=== PATIENT | male | born 1930 | race Asian ===

== ENCOUNTER → 2016-07-16 | Outpatient (CLI) | payer MEDICARE, OTHER ==
--- NOTE | 2016-07-16 13:18 | RADRPT ---
Echocardiogram Report Patient Name: JARED CHÁVEZ Gender: Male Date: 1930 Study Date: 16-Jul-2016 [place] Layer: Bharath [facility] Location: EKG Ref. Physician: DON HOFFMAN Quality: Adequate Procedures: Transthoracic echocardiogram with complete 2D, M-Mode, and doppler examination. Indications: Hypertension. 2D/M Mode Doppler Measurement Value Normal Ranges Measurement Value Normal Ranges LVIDd 2D 5.1 3.5 - 5.6 cm AV Peak Thierno 0.8 m/sec LVIDs 2D 3.8 2.1 - 4.1 cm AV Peak PG 2.8 mmHg LVPWd 2D 1.3 0.6 - 1.1 cm LVOT Peak Thierno 0.6 m/sec IVSd 2D 1.3 0.6 - 1.1 cm LVOT Peak PG 1.4 mmHg AoR Diam 2D 2.8 2.0 - 3.7 cm MV E Peak Thierno 0.5 m/sec EDV 2D 124.3 cm3 MV A Peak Thierno 0.9 m/sec ESV 2D 56.3 cm3 MV E/A 0.6 LA Dimen 2D 3.9 2.3 - 4.0 cm MV Decel Time 249 msec MV Decel [place] 2 MV E/A 0.6 Findings Left Ventricle: Overall, low normal left ventricular systolic function. Not all segments visualized. Normal left ventricular cavity size. Mild concentric left ventricular hypertrophy. Ejection fraction is visually estimated at 50 %. Tissue Doppler/Mitral Doppler indices are consistent with impaired relaxation (Stage I diastolic dysfunction). Right Ventricle: Normal right ventricular size. Normal right ventricular systolic function. Left Atrium: The left atrium is normal in size. Right Atrium: The right atrium is normal in size. Mitral Valve: Mitral valve leaflets appear mildly thickened. Trace mitral regurgitation. Aortic Valve: No hemodynamically significant aortic stenosis by doppler. Aortic cusps appear mildly calcified. Trace aortic valve regurgitation. Tricuspid Valve: Normal appearance of the tricuspid valve. There is trace tricuspid regurgitation. Pulmonic Valve: Pulmonic valve not well visualized. There is trace pulmonic regurgitation. Pericardium: Normal pericardium with no significant pericardial effusion. Aorta: Normal aortic root. IVC: Normal size and respiratory collapse consistent with normal right atrial pressure. Conclusions 1.Overall, low normal left ventricular systolic function. Not all segments visualized. Normal left ventricular cavity size. Mild concentric left ventricular hypertrophy. Ejection fraction is visually estimated at 50 %. Tissue Doppler/Mitral Doppler indices are consistent with impaired relaxation (Stage I diastolic dysfunction). 2.Normal right ventricular size. Normal right ventricular systolic function. 3.The left atrium is normal in size. 4.The right atrium is normal in size. 5.No significant valvular stenosis or regurgitation seen. 6.Normal pericardium with no significant pericardial effusion. Electronically Signed By: Patel Nuno 16-Jul-2016 13:17:46 -0700 Patient Name: JARED CHÁVEZ Study Date: 16-Jul-2016 [id number]
== END | disposition home or self-care (01) ==
LOC: EKG 10:29
PROVIDERS: ATTEND Internal Medicine Pulmonary Disease
DX: I10 Essential (primary) hypertension (principal)
CPT/HCPCS: 93306

== ENCOUNTER → 2016-12-18 | Outpatient (CLI) | payer MEDICARE, OTHER ==
--- NOTE | 2016-12-18 21:09 | RADRPT ---
Echocardiogram Report Patient Name: JARED CHÁVEZ Gender: Male Date: 1930 Study Date: 18-Dec-2016 [place] Plater: John Sullivan RDCS Location: EKG Ref. Physician: MARYANN XIONG Quality: Technically Difficult Study Procedures: Transthoracic echocardiogram with complete 2D, M-Mode, and doppler examination. Indications: Chest Pain. 2D/M Mode Doppler Measurement Value Normal Ranges Measurement Value Normal Ranges LVIDd 2D 5.0 3.5 - 5.6 cm AV Peak Thierno 1.0 m/sec LVIDs 2D 3.4 2.1 - 4.1 cm AV Peak PG 4.0 mmHg FS 2D 33.1 % LVOT Peak Thierno 0.7 m/sec LVPWd 2D 1.3 0.6 - 1.1 cm LVOT Peak PG 2.0 mmHg IVSd 2D 1.3 0.6 - 1.1 cm MV E Peak Thierno 0.6 m/sec IVS/LVPW 2D 1.0 MV A Peak Thierno 1.1 m/sec AoR Diam 2D 2.6 2.0 - 3.7 cm MV E/A 0.6 LA/Ao 2D 2 0 - 1 MV Decel Time 148 msec EDV 2D 127.0 cm3 MV E/A 0.6 ESV 2D 37.9 cm3 TR Peak Thierno 2.6 m/sec LA Dimen 2D 4.1 2.3 - 4.0 cm TR Peak PG 28.0 mmHg RVSP 31.0 mmHg Findings Left Ventricle: Normal left ventricular cavity size. Mild concentric left ventricular hypertrophy. Mild global left ventricular systolic dysfunction. Ejection fraction is visually estimated at 4550 %. Tissue Doppler/Mitral Doppler indices are consistent with impaired relaxation (Stage I diastolic dysfunction). Right Ventricle: Not well visualized. Left Atrium: There is mild enlargement of left atrium. Right Atrium: Not well visualized. Mitral Valve: Normal appearance and function of the mitral valve with trace physiologic regurgitation. Aortic Valve: No significant aortic stenosis or insufficiency. Aortic cusps appear moderately calcified. Tricuspid Valve: Normal appearance of the tricuspid valve. Estimated peak PA systolic pressure 31 mmHg. There is trace tricuspid regurgitation. Pulmonic Valve: Pulmonic valve not well visualized. Pericardium: Normal pericardium with no significant pericardial effusion. Aorta: Not well visualized. IVC: Normal size and normal respiratory collapse consistent with normal right atrial pressure. Conclusions 1.Normal left ventricular cavity size. Mild concentric left ventricular hypertrophy. Mild global left ventricular systolic dysfunction. Ejection fraction is visually estimated at 45-50 %. Tissue Doppler/Mitral Doppler indices are consistent with impaired relaxation (Stage I diastolic dysfunction). 2.There is mild enlargement of left atrium. 3.Normal appearance and function of the mitral valve with trace physiologic regurgitation. 4.No significant aortic stenosis or insufficiency. Aortic cusps appear moderately calcified. 5.Normal appearance of the tricuspid valve. Estimated peak PA systolic pressure 31 mmHg. There is trace tricuspid regurgitation. Electronically Signed By: Maryann Xiong 18-Dec-2016 21:08:12 -0700 Patient Name: JARED CHÁVEZ Study Date: 18-Dec-2016 [id number]
== END | disposition home or self-care (01) ==
LOC: EKG 09:23
PROVIDERS: ATTEND Internal Medicine
DX: R07.9 Chest pain, unspecified (principal); R06.00 Dyspnea, unspecified; I10 Essential (primary) hypertension; E78.5 Hyperlipidemia, unspecified; I25.2 Old myocardial infarction
CPT/HCPCS: 93306